=== PATIENT | male | born 1960 | race Caucasian/White ===

== ENCOUNTER 2016-12-12 17:28 | Emergency (ER) | payer MEDICARE ==
[2016-12-12] MEDS ORDERED: TORAdol 30 mg Injection IV ONE (17:49)
[2016-12-12] MEDS ORDERED: DUONEB 0.5-3 MG/3 ml Neb IH ONE ×2 (17:50→18:26)
[2016-12-12 17:54] LABS: BASOPHIL % 1.7 % (0.0-0.4); Eosinophil % 1.7 % (0.00-5.0); Granulocytes % 61.9 % (36.0-66.0); Mean Cell Volume 94.4 fl (78-100); Mean Corpuscular Hemoglobin 32.5 pg (26-32); Mean Platelet Volume 10.7 fl (6-9.5); Monocytes % 6.7 % (0.0-12.0); Platelet Count 164 K/mm3 (150-450); Red Blood Count 5.04 M/mm3 (4.1-5.6); Red Cell Distribution Width 14.1 % (11.5-14.0); White Blood Count 8.1 K/mm3 (4.0-10.5)
--- NOTE | 2016-12-12 17:57 | ERPHSYRPT ---
- History of Present Illness Time Seen by Provider: 12/12/16 17:40 Source: patient Patient Subjective Stated Complaint: PT REPORTS LEFT SIDED CHEST PAIN BEGINNING A MONTH AGO-STATES PAIN INCREASES AT TIME-PT HAS HAD TX AT ED X 2 FOR THIS- REPORTS DIAPHOSIS-DENIES N/V/D Triage Nursing Assessment: PT PINK WARM ET [id number] NONLABORED-PT APPEARS FLUSHED-SPEAKING IN COMPLETE SENTECES WITH EASE-LEFT FLANK TENDER TO PALP-NO COUGH NOTED DURING TRIAGE-SMELL OF ETOH NOTED-PT REPORTS HE HAD 2 BEERS EARLIER TODAY Physician History: CC: left chest pain Hx: 56 y/o patient of Dr Nance. He has left chest pain for one month. Worse with movement, cough, touch. No rash. No known injury. No bruising. Not short of breath. He has been to [facility] ER and had Rx for NSAID with normal xray. He then saw Dr Nance and had a negative CXR. The pain is worse so he came to ER. He had remote CABG. No DM. He has HTN. He is a chronic drinker of alcohol daily. Severity: severe Allergies/Adverse Reactions: No Known Allergies Allergy (Mild, Verified 12/12/16 17:35) Home Medications: Trazodone HCl 50 mg [Desyrel 50 mg] 100 mg PO HS 04/07/14 [History] Duloxetine HCl 30 mg [Cymbalta 30 MG Capsule] 60 mg PO DAILY 12/12/16 [ History] Lisinopril 10 mg [Zestril 10 MG] 10 mg PO DAILY 12/12/16 [History] Hx Tetanus, Diphtheria Vaccination/Date Given: No Hx Influenza Vaccination/Date Given: No Hx Pneumococcal Vaccination/Date Given: No Immunizations Up to Date: Yes - Review of Systems Constitutional: No Fever, No Chills Eyes: No Symptoms Ears, Nose, & Throat: No Symptoms Respiratory: No Cough, No Dyspnea Cardiac: Chest Pain (left anterior ribs), No Palpitations Abdominal/Gastrointestinal: No Abdominal Pain, No Nausea, No Vomiting Musculoskeletal: No Back Pain, No Neck Pain, No Fall, No Injury Skin: No Rash All Other Systems: Reviewed and Negative - Past Medical History Pertinent Past Medical History: Yes Neurological History: No Pertinent History ENT History: No Pertinent History Cardiac History: Angina, Coronary Artery Disease, High Cholesterol, Myocardial Infarction ([place]) Respiratory History: No Pertinent History Endocrine Medical History: No Pertinent History Musculoskeletal History: Arthritis, Degenerative Disk Disease GI Medical History: No Pertinent History History: No Pertinent History Psycho-Social History: Depression Male Reproductive Disorders: No Pertinent History - Past Surgical History Past Surgical History: Yes Neuro Surgical History: No Pertinent History Cardiac: CABG Respiratory: No Pertinent History Gastrointestinal: No Pertinent History Genitourinary: No Pertinent History Musculoskeletal: No Pertinent History Male Surgical History: No Pertinent History Other Surgical History: quintuple bypass 2009 - Social History Smoking Status: Current every day smoker How long have you smoked: 30yrs Exposure to second hand smoke: No Drug Use: none Patient Lives Alone: No - Nursing Vital Signs Nursing Vital Signs: Initial Vital Signs Temperature 98.4 F 12/12/16 17:30 Pulse Rate 96 H 12/12/16 17:30 Respiratory Rate 20 12/12/16 17:30 Blood Pressure 134/82 12/12/16 17:30 O2 Sat by Pulse Oximetry 96 12/12/16 17:30 Pain Scale Pain Intensity 5 - Physical Exam General Appearance: alert Eye Exam: PERRL/EOMI Ears, Nose, Throat Exam: normal ENT inspection, moist mucous membranes Neck Exam: normal inspection, non-tender, supple Respiratory Exam: chest tenderness (point tender left anterior rib without bruising or crepitus noted), wheezing (scattered), No respiratory distress Cardiovascular Exam: regular rate/rhythm, No murmur Gastrointestinal/Abdomen Exam: soft, No tenderness, No distention, No mass, No guarding Back Exam: normal inspection, No vertebral tenderness Extremity Exam: normal inspection, normal range of motion Neurologic Exam: alert, oriented x 3, cooperative, sensation nml, No motor deficits Skin Exam: warm, dry, No rash SpO2 Interpretation: normal SpO2: 96 Oxygen Delivery: Room Air - Course Nursing assessment & vital signs reviewed: Yes EKG Interpreted by Me: RATE (93), Sinus Rhythm, NORMAL AXIS, NORMAL INTERVALS ( QTc 443), Non-specific ST Changes - CT Exams chest CT Interpretation: Tele-radiologist Report (No PE, no mass, negative) Ordered Tests: Active Orders 24 hr Category Date Time Status EKG-ER Only STAT Care 12/12/16 17:49 Active IV Insertion STAT Care 12/12/16 17:49 Active Pulse Oximetry (ED) STAT Care 12/12/16 17:49 Active CHEST WITH CONTRAST [CT] Stat Exams 12/12/16 17:50 Taken CBC W DIFF Stat Lab 12/12/16 17:45 Completed CMP Stat Lab 12/12/16 17:45 Completed ETHYL ALCOHOL Stat Lab 12/12/16 17:45 Completed TROPONIN Q3H Lab 12/12/16 17:45 Completed TROPONIN Q3H Lab 12/12/16 21:00 Ordered TROPONIN Q3H Lab 12/13/16 00:00 Ordered TROPONIN Q3H Lab 12/13/16 03:00 Ordered TROPONIN Q3H Lab 12/13/16 06:00 Ordered Respiratory Nebulizer STAT RT 12/12/16 17:50 Completed Medication Summary Generic Name Dose Route Start Last Admin Trade Name Freq PRN Reason Stop Dose Admin Sodium Chloride 1,000 mls @ 100 mls/hr 12/12/16 18:00 12/12/16 18:15 Sodium Chloride 0.9% 1000 Ml IV 01/11/17 17:59 100 mls/hr .Q10H DEVYN Administration Discontinued Medications Generic Name Dose Route Start Last Admin Trade Name Freq PRN Reason Stop Dose Admin Albuterol/Ipratropium 3 ml 12/12/16 17:50 12/12/16 18:28 Duoneb 0.5-3 Mg/3 Ml Neb IH 12/12/16 17:51 3 ml STAT ONE Administration Albuterol/Ipratropium Confirm 12/12/16 18:26 Duoneb 0.5-3 Mg/3 Ml Neb Administered 12/12/16 18:27 Dose 3 ml IH .STK-MED ONE Ketorolac Tromethamine 30 mg 12/12/16 17:49 12/12/16 18:15 Toradol 30 Mg Injection IV 12/12/16 17:50 30 mg STAT ONE Administration Ketorolac Tromethamine Confirm 12/12/16 18:13 Toradol 30 Mg Injection Administered 12/12/16 18:14 Dose 30 mg .ROUTE .STK-MED ONE Lab/Rad Data: Laboratory Result Diagrams 12/12/16 17:45 12/12/16 17:45 Laboratory Results 12/12/16 12/12/16 12/12/16 Range/Units 17:45 17:45 17:45 WBC (4.0-10.5) K/mm3 RBC (4.1-5.6) M/mm3 Hgb (12.5-18.0) gm/dl Hct (42-50) % MCV (78-100) fl MCH (26-32) pg MCHC (32-36) g/dl RDW (11.5-14.0) % Plt Count (150-450) K/mm3 MPV (6-9.5) fl Gran % (36.0-66.0) % Lymphocytes % (24.0-44.0) % Monocytes % (0.0-12.0) % Eosinophils % (0.00-5.0) % Basophils % (0.0-0.4) % Basophils # (0-0.4) Sodium 135 L (136-145) mEq/L Potassium 4.6 (3.5-5.1) mEq/L Chloride 98 (98-107) mEq/L Carbon Dioxide 25.3 (21-32) mEq/L Anion Gap 16.4 H (5-15) MEQ/L BUN 11 (9-20) mg/dL Creatinine 0.86 (0.55-1.30) mg/dl Estimated GFR > 60 ML/MIN Glucose 132 H (70-110) MG/DL Calcium 9.4 (8.5-10.1) mg/dL Total Bilirubin 0.70 (0.2-1.0) mg/dL AST 162 H (15-37) U/L ALT 197 H (12-78) U/L Alkaline Phosphatase 168 H (46-116) U/L Troponin I < 0.017 (0.000-0.056) ng/ml Serum Total Protein 7.9 (6.4-8.2) gm/dL Albumin 3.7 (3.4-5.0) g/dL Ethyl Alcohol 0.094 H* (0.00-0.01) % 12/12/16 Range/Units 17:45 WBC 8.1 (4.0-10.5) K/mm3 RBC 5.04 (4.1-5.6) M/mm3 Hgb 16.4 (12.5-18.0) gm/dl Hct 47.6 (42-50) % MCV 94.4 (78-100) fl MCH 32.5 H (26-32) pg MCHC 34.5 (32-36) g/dl RDW 14.1 H (11.5-14.0) % Plt Count 164 (150-450) K/mm3 MPV 10.7 H (6-9.5) fl Gran % 61.9 (36.0-66.0) % Lymphocytes % 28.0 (24.0-44.0) % Monocytes % 6.7 (0.0-12.0) % Eosinophils % 1.7 (0.00-5.0) % Basophils % 1.7 (0.0-0.4) % Basophils # 0.14 (0-0.4) Sodium (136-145) mEq/L Potassium (3.5-5.1) mEq/L Chloride (98-107) mEq/L Carbon Dioxide (21-32) mEq/L Anion Gap (5-15) MEQ/L BUN (9-20) mg/dL Creatinine (0.55-1.30) mg/dl Estimated GFR ML/MIN Glucose (70-110) MG/DL Calcium (8.5-10.1) mg/dL Total Bilirubin (0.2-1.0) mg/dL AST (15-37) U/L ALT (12-78) U/L Alkaline Phosphatase (46-116) U/L Troponin I (0.000-0.056) ng/ml Serum Total Protein (6.4-8.2) gm/dL Albumin (3.4-5.0) g/dL Ethyl Alcohol (0.00-0.01) % - Progress Progress Note: 12/12/16 18:02 The hx is consistent with rib fracture although he has no reported trauma. He has been seen a few times. Will get chest CTA to rule out PE or rib fracture. 12/12/16 20:[address] is negative. Unsure etiology. Cardiac not suspicious. Called Dr Nance. Pt aware of test results. Advised hepatitis profile but he does not want that. Will follow up with Dr Nance. He is ready to go now. Advised no driving as intoxicated. Counseled pt/family regarding: drug and/or alcohol abuse, lab results, diagnosis , need for follow-up, rad results, smoking cessation - Departure Time of Disposition: 20:12 Departure Disposition: Home Clinical Impression: pleuritic left chest pain, Alcohol intoxication, Elevated transaminase level Condition: Stable Critical Care Time: No Referrals: YURY NANCE MD [Primary Care Provider] - Instructions: Atypical Chest Pain Additional Instructions: Rx ibuprofen. Follow up this week with Dr Nance. Use your norco sparingly as already prescribed. No driving tonite and stay with family. Prescriptions: Ibuprofen 600 mg PO Q6H PRN PRN #15 tablet PRN Reason: Pain
[2016-12-12] MEDS ORDERED: Sodium Chloride 0.9% 1000 ML 1,000 ML IV SCH (18:00)
[2016-12-12] MEDS ORDERED: TORAdol 30 mg Injection ONE (18:13)
[2016-12-12 18:21] LABS: ALBUMIN 3.7 g/dL (3.4-5.0); ALKALINE PHOSPHATASE 168 U/L (46-116); ANION GAP 16.4 MEQ/L (5-15); BLOOD UREA NITROGEN 11 mg/dL (9-20); CHLORIDE 98 mEq/L (98-107); Carbon Dioxide 25.3 mEq/L (21-32); Glucose 132 MG/DL (70-110); Potassium 4.6 mEq/L (3.5-5.1); SGOT/AST 162 U/L (15-37); SGPT/ALT 197 U/L (12-78); SODIUM 135 mEq/L (136-145); Total Protein 7.9 gm/dL (6.4-8.2)
[2016-12-12 20:48] VITALS: BP 130/74; PULSE 82; O2SAT 95
--- NOTE | 2016-12-13 14:41 | XRAY ---
Exam: CTA of the chest with IV contrast per PE protocol from 12/12/2016. CTDI: 21.07 Comparison: Two-view chest series from 12/05/2016. Indication: Left-sided chest pain 1 month. Technique: Post-IV contrast axial images were obtained through the chest using the PE protocol. Reconstructed sagittal and coronal MIPS images were obtained. Findings: The pulmonary arteries enhance well. I see no evidence of pulmonary embolism/clot. No thoracic aortic dissection or aneurysm is seen. The heart size is normal without pericardial effusion. Both the right and left coronary artery vascular calcification is seen. I see evidence of prior CABG with midline sternotomy. No abnormal soft tissue mediastinal or perihilar lymphadenopathy is seen. The central airways are open on the coronal images. Incidentally, a mild amount of high attenuation contrast is seen within the esophageal lumen just below the level of the aissatou. Consider gastroesophageal reflux. Mild posterior bibasilar atelectatic changes are seen. I see no infiltrates or significant interstitial lung disease. However, there is a 6 mm soft tissue nodule within the anterior aspect of the right lower lobe on axial image #102 of series #3. There is also seen on sagittal image #51. Furthermore, within the medial aspect of the left lower lobe there is a nodule measuring about 7 mm in diameter on axial image #46 which is also seen on sagittal image #125. Follow-up will be needed. No other abnormal soft tissue lung nodules are seen. No dominant airspace consolidations or air space infiltrates are seen. No pneumothorax or pleural effusion is seen. There is some decreased attenuation of the liver suggestive of hepatic steatosis. The adrenal glands are partially seen and reveal no gross abnormality. Impression: 1. I see no CT evidence of acute pulmonary embolism. 2. Incidentally, there is a 6 mm lung nodule in the anterior aspect of the right lower lobe and a 7 mm in diameter soft tissue nodule within the medial aspect of the left lower lobe posteriorly. I have no previous CTs exam with which to compare. I would recommend a follow-up CT scan in 6 months for ongoing monitoring. The nature of these lung nodules is indeterminate. Stability for at least a two-year period of time is needed to state that a lung nodule is nonaggressive or benign with a high degree of certainty. I called this finding to the Emergency Department at 2:27 PM on 12/13/2016. 3. There is a small amount of high attenuation material within the mid thoracic esophageal lumen just below the level of the aissatou. For example, see axial image #109 of series #3. This may relate to gastroesophageal reflux. Correlate clinically. 4. Minor compression atelectatic changes are seen at both posterior lung bases. No other acute cardiopulmonary disease is seen. 5. Mild hepatic steatosis.
== END 2016-12-12 20:46 | disposition home or self-care (01) ==
LOC: ED 17:28
DX: R07.89 Other chest pain (principal); F10.129 Alcohol abuse with intoxication, unspecified; R74.0 Nonspecific elevation of levels of transaminase and lactic acid dehydrogenase [LDH]; I25.10 Atherosclerotic heart disease of native coronary artery without angina pectoris; I25.2 Old myocardial infarction; E78.00 Pure hypercholesterolemia, unspecified; Z95.1 Presence of aortocoronary bypass graft
CPT/HCPCS: 96374; 99284; 36000; 96360; 96361; 93005; 36415; 85025; 80053; 84484; 71260; 94640; G0481; J1885; A9270-GY

== ENCOUNTER 2017-07-14 19:59 | Emergency (ER) | payer MEDICARE ==
[2017-07-14] MEDS ORDERED: SUBLIMAZE 100 MCG/2 ML IV ONE ×2 (20:28→22:23)
[2017-07-14] MEDS ORDERED: Sodium Chloride 0.9% 1000 ML 1,000 ML IV SCH (20:30)
--- NOTE | 2017-07-14 20:35 | ERPHSYRPT ---
- History of Present Illness Time Seen by Provider: 07/14/17 20:18 Source: patient Exam Limitations: no limitations Patient Subjective Stated Complaint: pt states he has been drinking today and has fallen 3 times. states last fall was approx 30 min ago and he fell down 3 stairs and fell on his lt shoulder and lt wrist Triage Nursing Assessment: pt alert and oriented, answerts qeustions approp. respirations nonlabored with lungs cta. pt ambulatory with steady gait noted. pt holding lt arm at side. swelling noted to lt wrist, abrasion to lt elbow and lt posterior shoulder. bruising noted to lt posterior upper arm. abrasion noted to rt forearm- pt states from previous fall today. Physician History: ABOUT 2 HOURS AGO PT FELL DOWN 3 STEPS OF AN OUTSIDE PORCH AT HIS FRIEND'S HOUSE WITH RESULTANT PAIN IN THE RIGHT FOREARM, LEFT SHOULDER, LEFT ARM AND LEFT WRIST. PT ALSO C/O INTERMITTENT SHARP NON-RADIATING LEFT ANTERIOR CHEST PAIN LASTING UP TO 1 MINUTE PER EPISODE FOR THE PAST 5 DAYS. PT DENIES SHORTNESS OF AIR, FEVER, ABDOMINAL PAIN. Allergies/Adverse Reactions: No Known Allergies Allergy (Mild, Verified 07/14/17 20:15) Home Medications: Trazodone HCl 50 mg [Desyrel 50 mg] 100 mg PO HS 04/07/14 [History] Duloxetine HCl 30 mg [Cymbalta 30 MG Capsule] 60 mg PO DAILY 12/12/16 [ History] Lisinopril 10 mg [Zestril 10 MG] 10 mg PO DAILY 12/12/16 [History] Hx Tetanus, Diphtheria Vaccination/Date Given: No Hx Influenza Vaccination/Date Given: Yes Hx Pneumococcal Vaccination/Date Given: No Immunizations Up to Date: No - Review of Systems Constitutional: No Fever Respiratory: No Dyspnea Cardiac: Chest Pain Musculoskeletal: Other (PAIN IN RIGHT FOREARM, LEFT ARM, LEFT SHOULDER AND LEFT WRIST TODAY.) All Other Systems: Reviewed and Negative - Past Medical History Pertinent Past Medical History: Yes Neurological History: No Pertinent History ENT History: No Pertinent History Cardiac History: Angina, Coronary Artery Disease, High Cholesterol, Myocardial Infarction ([place]) Respiratory History: No Pertinent History Endocrine Medical History: No Pertinent History Musculoskeletal History: Arthritis, Degenerative Disk Disease GI Medical History: No Pertinent History History: No Pertinent History Psycho-Social History: Depression Male Reproductive Disorders: No Pertinent History - Past Surgical History Past Surgical History: Yes Neuro Surgical History: No Pertinent History Cardiac: CABG Respiratory: No Pertinent History Gastrointestinal: No Pertinent History Genitourinary: No Pertinent History Musculoskeletal: No Pertinent History Male Surgical History: No Pertinent History Other Surgical History: quintuple bypass 2009 - Social History Smoking Status: Current every day smoker How long have you smoked: 30yrs Exposure to second hand smoke: No Drug Use: none Patient Lives Alone: Yes - Nursing Vital Signs Nursing Vital Signs: Initial Vital Signs Temperature 97.9 F 07/14/17 20:04 Pulse Rate 82 07/14/17 20:04 Respiratory Rate 20 07/14/17 20:04 Blood Pressure 158/92 07/14/17 20:04 O2 Sat by Pulse Oximetry 96 07/14/17 20:04 Pain Scale Pain Intensity 6 - Physical Exam General Appearance: alert Eye Exam: PERRL/EOMI Ears, Nose, Throat Exam: pharynx normal, moist mucous membranes Neck Exam: normal inspection, non-tender Respiratory Exam: wheezing Cardiovascular Exam: normal heart sounds Gastrointestinal/Abdomen Exam: soft, normal bowel sounds Back Exam: normal range of motion, No vertebral tenderness Extremity Exam: other (BRUISING ON POSTERIOR ASPECT OF LEFT ARM; BRUISING AND SUPERFICIAL ABRASION TO VOLAR ASPECT OF RIGHT FOREARM; ABRASION/TENDERNESS OF LEFT SHOULDER; LEFT WRIST TENDERNESS WITH NO ACTIVE ROM; ALL DIGITS OF BOTH HANDS HAVE GOOD SENSATION AND CAPILLARY REFILL.) Neurologic Exam: alert, cooperative SpO2 Interpretation: normal SpO2: 96 Oxygen Delivery: Room Air - Course Nursing assessment & vital signs reviewed: Yes EKG Interpreted by Me: RATE (77), Sinus Rhythm, NORMAL AXIS, NORMAL INTERVALS - Radiology Exams Right Forearm X-ray Interpretation: Teleradiologist Report (NORMAL RIGHT FOREARM X-RAYS.) Left Humerus X-ray Interpretation: Teleradiologist Report (NORMAL LEFT HUMERUS X-RAYS.) Left Shoulder X-ray Interpretation: Teleradiologist Report (NORMAL LEFT SHOULDER X-RAYS.) Left Wrist X-ray Interpretation: Teleradiologist Report (NEGATIVE FOR ACUTE BONE ABNORMALITY.) - CT Exams Chest CT Interpretation: Tele-radiologist Report (NO PULMONARY EMBOLISM. NO FOCAL PULMONARY INFILTRATE. STABLE RLL PULMONARY NODULE. NONACUTE LATERAL RIGHT EIGHT RIB FRACTURE IS NEW SINCE PRIOR EXAM OF 12/12/16.) Ordered Tests: Active Orders 24 hr Category Date Time Status Complex Human Resources Manager STAT Care 07/14/17 20:32 Active EKG-ER Only STAT Care 07/14/17 20:28 Active IV Insertion STAT Care 07/14/17 20:28 Active Oxygen-ED Only NASAL CANNULA 2 lpm Care 07/14/17 20:28 Active CHEST WITH CONTRAST [CT] Stat Exams 07/14/17 21:26 Taken FOREARM Stat Exams 07/14/17 20:33 Taken HUMERUS Stat Exams 07/14/17 20:33 Taken SHOULDER Stat Exams 07/14/17 20:33 Taken WRIST (MIN 3 VIEWS) Stat Exams 07/14/17 20:33 Taken AMYLASE Stat Lab 07/14/17 20:37 Completed CBC W DIFF Stat Lab 07/14/17 20:37 Completed CMP Stat Lab 07/14/17 20:37 Completed D-DIMER QUANTITATION Stat Lab 07/14/17 20:37 Completed ETHYL ALCOHOL Stat Lab 07/14/17 20:37 Completed LIPASE Stat Lab 07/14/17 20:37 Completed MAGNESIUM Stat Lab 07/14/17 20:37 Completed NT PRO BNP Stat Lab 07/14/17 20:37 Completed TROPONIN Q3H Lab 07/14/17 20:37 Completed TROPONIN Q3H Lab 07/14/17 23:45 Received TROPONIN Q3H Lab 07/15/17 02:45 Ordered TROPONIN Q3H Lab 07/15/17 05:45 Ordered TROPONIN Q3H Lab 07/15/17 08:45 Ordered UA W/RFX UR CULTURE Stat Lab 07/14/17 21:48 Completed Urine Triage Profile Stat Lab 07/14/17 21:48 Completed Respiratory Nebulizer STAT RT 07/14/17 21:18 Active Medication Summary Generic Name Dose Route Start Last Admin Trade Name Freq PRN Reason Stop Dose Admin Sodium Chloride 1,000 mls @ 100 mls/hr 07/14/17 20:30 07/14/17 20:51 Sodium Chloride 0.9% 1000 Ml IV 08/13/17 20:29 100 mls/hr .Q10H DEVYN Administration Discontinued Medications Generic Name Dose Route Start Last Admin Trade Name Freq PRN Reason Stop Dose Admin Albuterol Sulfate 2.5 mg 07/14/17 21:18 07/14/17 21:44 Proventil 2.5 Mg/3 Ml Neb IH 07/14/17 21:19 2.5 mg STAT ONE Administration Albuterol Sulfate Confirm 07/14/17 21:43 Proventil 2.5 Mg/3 Ml Neb Administered 07/14/17 21:44 Dose 2.5 mg IH .STK-MED ONE Fentanyl Citrate 50 mcg 07/14/17 20:28 07/14/17 20:49 Sublimaze 100 Mcg/2 Ml IV 07/14/17 20:29 50 mcg STAT ONE Administration Fentanyl Citrate Confirm 07/14/17 20:47 Sublimaze 100 Mcg/2 Ml Administered 07/14/17 20:48 Dose 100 mcg .ROUTE .STK-MED ONE Fentanyl Citrate 50 mcg 07/14/17 22:23 07/14/17 23:29 Sublimaze 100 Mcg/2 Ml IV 07/14/17 22:24 50 mcg STAT ONE Administration Fentanyl Citrate Confirm 07/14/17 23:28 Sublimaze 100 Mcg/2 Ml Administered 07/14/17 23:29 Dose 100 mcg .ROUTE .STK-MED ONE Lab/Rad Data: Laboratory Result Diagrams 07/14/17 20:37 07/14/17 20:37 Laboratory Results 07/14/17 07/14/17 07/14/17 Range/Units 21:48 21:48 20:37 WBC (4.0-10.5) K/mm3 RBC (4.1-5.6) M/mm3 Hgb (12.5-18.0) gm/dl Hct (42-50) % MCV (78-100) fl MCH (26-32) pg MCHC (32-36) g/dl RDW (11.5-14.0) % Plt Count (150-450) K/mm3 MPV (6-9.5) fl Gran % (36.0-66.0) % Eos # (Auto) (0-0.5) Absolute Lymphs (auto) (1.0-4.6) Absolute Monos (auto) (0.0-1.3) Lymphocytes % (24.0-44.0) % Monocytes % (0.0-12.0) % Eosinophils % (0.00-5.0) % Basophils % (0.0-0.4) % Absolute Granulocytes (1.4-6.9) Basophils # (0-0.4) D-Dimer (215-500) ng/mL Sodium (137-145) mmol/L Potassium (3.5-5.1) mmol/L Chloride (98-107) mmol/L Carbon Dioxide (22-30) mmol/L Anion Gap (5-15) MEQ/L BUN (9-20) mg/dL Creatinine (0.66-1.25) mg/dL Estimated GFR ML/MIN Glucose (74-106) mg/dL Calcium (8.4-10.2) mg/dL Magnesium (1.6-2.3) mg/dL Total Bilirubin (0.2-1.3) mg/dL AST (17-59) U/L ALT (0-50) U/L Alkaline Phosphatase (38-126) U/L Troponin I < 0.012 (0.000-0.034) ng/mL NT-Pro-B Natriuret Pep (0-900) pg/mL Serum Total Protein (6.3-8.2) g/dL Albumin (3.5-5.0) g/dL Amylase (30-110) U/L Lipase (23-300) U/L Ur Collection Type VOID Urine Color LT.YELLOW (YELLOW) Urine Appearance CLEAR (CLEAR) Urine pH 5.0 (5-6) Ur Specific [place] 1.005 (1.005-1.025) Urine Protein NEGATIVE (Negative) Urine Ketones NEGATIVE (NEGATIVE) Urine Blood NEGATIVE (0-5) Olman/ul Urine Nitrite NEGATIVE (NEGATIVE) Urine Bilirubin NEGATIVE (NEGATIVE) Urine Urobilinogen NORMAL (0-1) mg/dL Ur Leukocyte Esterase NEGATIVE (NEGATIVE) Urine Culture Reflexed NO (NO) Urine Glucose NEGATIVE (NEGATIVE) mg/dL Urine Opiates Level NEGATIVE (NEGATIVE) Ur Methadone NEGATIVE (NEGATIVE) Urine Barbiturates NEGATIVE (NEGATIVE) Ur Phencyclidine (PCP) NEGATIVE (NEGATIVE) Urine Amphetamine NEGATIVE (NEGATIVE) U Benzodiazepine Level NEGATIVE (NEGATIVE) Urine Cocaine NEGATIVE (NEGATIVE) Urine Marijuana (THC) NEGATIVE (NEGATIVE) Ethyl Alcohol (0-9) mg/dL Specimen Received 07/14/17 2130 07/14/17 07/14/17 07/14/17 Range/Units 20:37 20:37 20:37 WBC 6.3 (4.0-10.5) K/mm3 RBC 4.93 (4.1-5.6) M/mm3 Hgb 15.7 (12.5-18.0) gm/dl Hct 46.1 (42-50) % MCV 93.5 (78-100) fl MCH 31.8 (26-32) pg MCHC 34.1 (32-36) g/dl RDW 13.7 (11.5-14.0) % Plt Count 172 (150-450) K/mm3 MPV 10.6 H (6-9.5) fl Gran % 41.4 (36.0-66.0) % Eos # (Auto) 0.19 (0-0.5) Absolute Lymphs (auto) 2.88 (1.0-4.6) Absolute Monos (auto) 0.52 (0.0-1.3) Lymphocytes % 45.5 H (24.0-44.0) % Monocytes % 8.2 (0.0-12.0) % Eosinophils % 3.0 (0.00-5.0) % Basophils % 1.9 (0.0-0.4) % Absolute Granulocytes 2.62 (1.4-6.9) Basophils # 0.12 (0-0.4) D-Dimer 6545.32 H* (215-500) ng/mL Sodium 142 (137-145) mmol/L Potassium 4.2 (3.5-5.1) mmol/L Chloride 101 (98-107) mmol/L Carbon Dioxide 29 (22-30) mmol/L Anion Gap 16.5 H (5-15) MEQ/L BUN 8 L (9-20) mg/dL Creatinine 0.71 (0.66-1.25) mg/dL Estimated GFR > 60.0 ML/MIN Glucose 102 (74-106) mg/dL Calcium 8.4 (8.4-10.2) mg/dL Magnesium 1.9 (1.6-2.3) mg/dL Total Bilirubin 0.20 (0.2-1.3) mg/dL AST 92 H (17-59) U/L ALT 69 H (0-50) U/L Alkaline Phosphatase 109 (38-126) U/L Troponin I (0.000-0.034) ng/mL NT-Pro-B Natriuret Pep 62.4 (0-900) pg/mL Serum Total Protein 7.3 (6.3-8.2) g/dL Albumin 3.9 (3.5-5.0) g/dL Amylase 68 (30-110) U/L Lipase 118 (23-300) U/L Ur Collection Type Urine Color (YELLOW) Urine Appearance (CLEAR) Urine pH (5-6) Ur Specific [place] (1.005-1.025) Urine Protein (Negative) Urine Ketones (NEGATIVE) Urine Blood (0-5) Olman/ul Urine Nitrite (NEGATIVE) Urine Bilirubin (NEGATIVE) Urine Urobilinogen (0-1) mg/dL Ur Leukocyte Esterase (NEGATIVE) Urine Culture Reflexed (NO) Urine Glucose (NEGATIVE) mg/dL Urine Opiates Level (NEGATIVE) Ur Methadone (NEGATIVE) Urine Barbiturates (NEGATIVE) Ur Phencyclidine (PCP) (NEGATIVE) Urine Amphetamine (NEGATIVE) U Benzodiazepine Level (NEGATIVE) Urine Cocaine (NEGATIVE) Urine Marijuana (THC) (NEGATIVE) Ethyl Alcohol 288 H (0-9) mg/dL Specimen Received - Departure Time of Disposition: 00:12 Departure Disposition: Home Clinical Impression: CONTUSION/ABRASION OF RIGHT FOREARM, CONTUSION OF LEFT ARM, ABRASION/SPRAIN OF LEFT SHOULDER, CHEST PAIN, ALCOHOL INTOXICATION, LEFT WRIST SPRAIN, CAD, ARTHRITIS, DEPRESSION Condition: Stable Critical Care Time: No Referrals: YURY NANCE MD [Primary Care Provider] - Instructions: Shoulder Sprain (DC), Wrist Sprain (DC), Contusion (DC), Alcohol Use - When Is Drinking a Problem? Additional Instructions: FOLLOW UP WITH PRIVATE DOCTOR TOMORROW. WEAR LEFT ARM SLING FOR COMFORT. SHAINA WRAP TO LEFT WRIST FOR 4 DAYS. ELEVATE LEFT WRIST ABOVE HEART LEVEL FOR 24 HOURS. AVOID CONSUMING ALCOHOLIC BEVERAGES.
[2017-07-14 20:43] LABS: BASOPHIL % 1.9 % (0.0-0.4); Basophil (Absolute #) 0.12 (0-0.4); Eosinophil (Absolute #) 0.19 (0-0.5); Granulocyte Absolute (ANC) 2.62 (1.4-6.9); Granulocytes % 41.4 % (36.0-66.0); Hematocrit 46.1 % (42-50); Hemoglobin 15.7 gm/dl (12.5-18.0); Lymphocyte (Absolute #) 2.88 (1.0-4.6); Lymphocytes % 45.5 % (24.0-44.0); Mean Cell Volume 93.5 fl (78-100); Mean Corpuscular Hemoglobin 31.8 pg (26-32); Mean Corpuscular Hgb Concent. 34.1 g/dl (32-36); Mean Platelet Volume 10.6 fl (6-9.5); Monocyte (Absolute #) 0.52 (0.0-1.3); Monocytes % 8.2 % (0.0-12.0); Platelet Count 172 K/mm3 (150-450); Red Blood Count 4.93 M/mm3 (4.1-5.6); Red Cell Distribution Width 13.7 % (11.5-14.0); White Blood Count 6.3 K/mm3 (4.0-10.5)
[2017-07-14] MEDS ORDERED: SUBLIMAZE 100 MCG/2 ML ONE ×2 (20:47→23:28)
[2017-07-14] MEDS ORDERED: Sodium Chloride 0.9% 1000 ML 1,000 ML ONE (20:47)
[2017-07-14 20:55] LABS: ALBUMIN 3.9 g/dL (3.5-5.0); ALKALINE PHOSPHATASE 109 U/L (38-126); AMYLASE 68 U/L (30-110); ANION GAP 16.5 MEQ/L (5-15); BLOOD UREA NITROGEN 8 mg/dL (9-20); CHLORIDE 101 mmol/L (98-107); Calcium 8.4 mg/dL (8.4-10.2); Carbon Dioxide 29 mmol/L (22-30); Creatinine 1 0.71 mg/dL (0.66-1.25); ETHYL ALCOHOL 288 mg/dL (0-9); Glucose 102 mg/dL (74-106); LIPASE 118 U/L (23-300); Potassium 4.2 mmol/L (3.5-5.1); SGOT/AST 92 U/L (17-59); SGPT/ALT 69 U/L (0-50); SODIUM 142 mmol/L (137-145); Total Protein 7.3 g/dL (6.3-8.2)
[2017-07-14 21:03] LABS: NT PRO BNP 62.4 pg/mL (0-900)
[2017-07-14] MEDS ORDERED: PROVENTIL 2.5 MG/3 ML NEB IH ONE ×2 (21:18→21:43)
[2017-07-14 21:58] LABS: Appearance CLEAR (CLEAR); Bilirubin NEGATIVE (NEGATIVE); Blood NEGATIVE Ery/ul (0-5); Glucose NEGATIVE (NEGATIVE); Ketones NEGATIVE (NEGATIVE); Leukocyte Esterase NEGATIVE (NEGATIVE); Nitrite NEGATIVE (NEGATIVE); Protein,Urine Dip NEGATIVE (Negative); Specific Gravity 1.005 (1.005-1.025); Urobilinogen NORMAL mg/dL (0-1)
[2017-07-14 22:20] LABS: Amphetamine,Urine NEGATIVE (NEGATIVE); Barbiturate,Urine NEGATIVE (NEGATIVE); Benzodiazepine,Urine NEGATIVE (NEGATIVE); Cocaine,Urine NEGATIVE (NEGATIVE); Methadone,Urine NEGATIVE (NEGATIVE); Opiate,Urine NEGATIVE (NEGATIVE); PCP,Urine NEGATIVE (NEGATIVE); THC,Urine NEGATIVE (NEGATIVE)
[2017-07-14 23:55] VITALS: BP 145/87; PULSE 84
[2017-07-15 00:09] VITALS: O2SAT 96
--- NOTE | 2017-07-15 08:00 | XRAY ---
Indication: Chest tightness and short of breath. Elevated d-dimer. Multiple contiguous axial images obtained through the chest using 80 cc Isovue 370 contrast and PE protocol. Comparison: December 12, 2016. There is satisfactory opacification of the pulmonary arteries to include the lobar and segmental branches. Again no filling defect or pulmonary embolus. Heart is not enlarged again demonstrating previous CABG surgery. Aorta negative for aneurysm/dissection. No pathologic mediastinal/hilar lymphadenopathy. Examination of the lung parenchyma again demonstrates stable right lower lobe calcified granuloma. Minimal posterior dependent atelectasis. No infiltrate or effusion. Bony thorax intact again with minimal degenerative changes throughout the spine. New healing left 7th and right 8th rib fractures. Limited upper abdomen again demonstrates fatty liver. Impression: 1. Again negative pulmonary embolus. 2. No new or acute cardiopulmonary abnormalities. 3. Healing left 7 and right 8 rib fractures 3. Stable fatty liver. Comment: Preliminary interpretation was made by C. No critical discrepancy. CTDI 19.73
--- NOTE | 2017-07-15 08:02 | XRAY ---
Indication: Pain following fall. Comparison: None 2 views of the right forearm demonstrates normal bones, articulations, and soft tissues. Comment: Preliminary interpretation was made by [facility]. No discrepancy.
--- NOTE | 2017-07-15 08:04 | XRAY ---
Indication: Pain following fall. Comparison: None 3 views of the left shoulder demonstrates nondisplaced healing 7th rib fracture, mild glenohumeral degenerative arthropathy, and CABG surgery. No other bony, articular, or soft tissue abnormalities Comment: Preliminary interpretation was made by [facility]. Rib fracture not reported.
--- NOTE | 2017-07-15 08:09 | XRAY ---
Indication: Pain following fall. Comparison: None 2 views of the left humerus demonstrates mild glenohumeral degenerative arthropathy including tiny well-circumscribed medial heterotopic ossification. No other bony, articular, or soft tissue abnormalities. Comment: Preliminary interpretation was made by [facility]. Degenerative changes not reported.
--- NOTE | 2017-07-15 08:11 | XRAY ---
Indication: Pain following fall. Comparison: None 3 views of the left wrist demonstrates advanced first metacarpal multangular degenerative changes, radiocarpal joint space narrowing, distal ulnar spurring, and tiny capitate/lunate bone cysts. No other bony, articular, or soft tissue abnormalities. Comment: Preliminary interpretation was made by [facility]. No critical discrepancy.
== END 2017-07-15 00:31 | disposition home or self-care (01) ==
LOC: ED 19:59
DX: S50.11XA Contusion of right forearm, initial encounter (principal); S40.022A Contusion of left upper arm, initial encounter; S63.502A Unspecified sprain of left wrist, initial encounter; S43.402A Unspecified sprain of left shoulder joint, initial encounter; R07.9 Chest pain, unspecified; F10.129 Alcohol abuse with intoxication, unspecified; M79.631 Pain in right forearm; M25.512 Pain in left shoulder; M25.532 Pain in left wrist; Z79.899 Other long term (current) drug therapy; I25.10 Atherosclerotic heart disease of native coronary artery without angina pectoris; M19.90 Unspecified osteoarthritis, unspecified site; F32.9 Major depressive disorder, single episode, unspecified; W10.9XXA Fall (on) (from) unspecified stairs and steps, initial encounter
CPT/HCPCS: 36000; 36415; 71260; 73030; 73060; 73090; 73110; 80053; 80302; 80307; 81002; 82150; 83690; 83735; 83880; 84484; 85025; 85379; 93005; 93041; 94150; 94640; 96360; 96361; 96374; 96376; 99284; J3010; A9270-GY; G0480